=== PATIENT | male | born 1985 | race Two or more races ===

== ENCOUNTER → 2016-12-20 | Outpatient (CLI) | payer OTHER | LOC: CIMAGING 14:40 | PROVIDERS: ATTEND Family Medicine | DX: M25.571 Pain in right ankle and joints of right foot (principal) | CPT/HCPCS: 73610-PO ==

== ENCOUNTER 2017-01-29 19:05 | Emergency (ER) | payer OTHER ==
[2017-01-29 19:40] VITALS: BP 124/76; PULSE 75; RESP 16; TEMP 99; O2SAT 95
[2017-01-29] MEDS ORDERED: ACETAMINOPHEN/CODEINE 300/30MG TAB PO ONE (20:43)
--- NOTE | 2017-01-29 20:44 | UCPHY ---
H & P Patient Type: New Chief Complaint Nursing Narrative: C/o chest congestion and productive cough with green sputum x 3 days. Denies fever. Time Seen by Provider: 01/29/17 20:37 HPI/ROS: CHIEF COMPLAINT: Cough HISTORY OF PRESENT ILLNESS: The patient is a 31-year-old man who comes to the Urgent Care complaining of a cough particularly at night. He states that it is keeping him awake. During the day he does not feel very symptomatic. He has mild sinus congestion and thinks that he is having postnasal drip. No difficulty breathing, no chest pain. No fever. No sore throat. REVIEW OF SYSTEMS: Constitutional: denies: chills, fever, recent illness, recent injury EENTM: denies: blurred vision, double vision, nose congestion Respiratory: See HPI Cardiac: denies: chest pain, irregular heart rate, lightheadedness, palpitations Gastrointestinal/Abdominal: denies: abdominal pain, diarrhea, nausea, vomiting, blood streaked stools Genitourinary: denies: dysuria, frequency, hematuria, pain Musculoskeletal: denies: joint pain, muscle pain Skin: denies: lesions, rash, jaundice, bruising Neurological: denies: headache, numbness, paresthesia, tingling, dizziness, weakness Hematologic/Lymphatic: denies: blood clots, easy bleeding, easy bruising Immunologic/allergic: denies: HIV/AIDS, transplant EXAM: GENERAL: Well-appearing, well-nourished and in no acute distress. HEAD: Atraumatic, normocephalic. EYES: Pupils equal round and reactive to light, extraocular movements intact, sclera anicteric, conjunctiva are normal. ENT: TMs normal, nares patent, no sinus tenderness, oropharynx clear without exudates. Moist mucous membranes. NECK: Normal range of motion, supple without lymphadenopathy or JVD. LUNGS: Breath sounds clear to auscultation bilaterally and equal. No wheezes rales or rhonchi. HEART: Regular rate and rhythm without murmurs, rubs or gallops. ABDOMEN: Soft, nontender, normoactive bowel sounds. No guarding, no rebound. No masses appreciated. BACK: No CVA tenderness, no spinal tenderness, step-offs or deformities EXTREMITIES: Normal range of motion, no pitting or edema. No clubbing or cyanosis. NEUROLOGICAL: Cranial nerves II through XII grossly intact. Normal speech, normal gait. 5/5 strength, normal movement in all extremities, normal sensation PSYCH: Normal mood, normal affect. SKIN: Warm, dry, normal turgor, no visible rashes or lesions. Source: Patient - Personal History Current Tetanus Diphtheria and Acellular Pertussis (TDAP): Yes Tetanus Vaccine Date: within 10 years - Medical/Surgical History Hx Asthma: No Hx Chronic Respiratory Disease: No Hx Diabetes: No Hx Cardiac Disease: No Hx Renal Disease: No Hx Cirrhosis: No Hx Alcoholism: No Hx HIV/AIDS: No Hx Splenectomy or Spleen Trauma: No Other PMH: R hand surgery - Family History Significant Family History: No pertinent family hx - Social History Smoking Status: Former smoker Alcohol Use: Sober Drug Use: None Constitutional: Initial Vital Signs Temperature (C) 37.2 C 01/29/17 19:38 Heart Rate 75 01/29/17 19:38 Respiratory Rate 16 01/29/17 19:38 Blood Pressure 124/76 H 01/29/17 19:38 O2 Sat (%) 95 01/29/17 19:38 O2 Delivery Mode Room Air Allergies/Adverse Reactions: No Known Allergies Allergy (Verified 01/29/17 19:40) Home Medications: Medication Instructions Recorded Promethazine HCl/Codeine 5 ml PO Q4-6PRN PRN #90 ml 01/29/17 [Prometh-Codein 6.25-10 mg/5 ml] Medical Decision Making ED Course/Re-evaluation: The patient is here requesting cough medicine. I will start him on Tylenol with codeine tonight and write her prescription for cough syrup but the pharmacies are currently closed. He understands and agrees with this plan. He is not asking for antibiotics. We discussed indications for returning. Differential Diagnosis: Partial list of the Differential diagnosis considered include but were not limited to; upper respiratory tract infection, bronchitis, pneumonia, sinusitis and although unlikely based on the history and physical exam, I also considered otitis media, arrhythmia, sepsis, acute coronary disease. I discussed these differential diagnoses and the plan with the patient as well as the usual and expected course. The patient understands that the diagnosis is provisional and that in medicine we are not always correct and that further workup is often warranted. Usual and customary warnings were given. All of the patient's questions were answered. The patient was instructed to return to the emergency department should the symptoms at all worsen or return, otherwise to followup with the physician as we discussed. - Data Points Medications Given: Discontinued Medications Acetaminophen/Codeine Phosphate (Tylenol #3) 2 tab PO EDNOW ONE Stop: 01/29/17 20:44 Last Admin: 01/29/17 20:57 Dose: 2 tab Departure - Departure Disposition: Home, Routine, Self-Care Clinical Impression: Cough Condition: Fair Instructions: Acute Cough (ED) Referrals: Evangelista Colvin MD [Primary Care Provider] - As per Instructions Prescriptions: Promethazine HCl/Codeine [Prometh-Codein 6.25-10 mg/5 ml] 5 ml PO Q4-6PRN PRN # 90 ml PRN Reason: Cough, Moderate - PQRS PQRS Measurement: Not applicable
== END 2017-01-29 21:05 | disposition home or self-care (01) ==
LOC: CED 19:05
DX: R05 Cough (principal); Z87.891 Personal history of nicotine dependence
CPT/HCPCS: 96360-PO; G0463-PO

== ENCOUNTER → 2018-04-28 | Outpatient (CLI) | payer BC | LOC: CIMAGING 14:37 | PROVIDERS: ATTEND Internal Medicine | DX: M79.672 Pain in left foot (principal) | CPT/HCPCS: 73650-PO ==

== ENCOUNTER → 2018-09-22 | Outpatient (CLI) | payer BC | LOC: CIMAGING 11:10 | PROVIDERS: ATTEND Internal Medicine | DX: S79.912A Unspecified injury of left hip, initial encounter (principal); S89.92XA Unspecified injury of left lower leg, initial encounter | CPT/HCPCS: 73502-PO; 73562-PO ==